=== PATIENT | female | born 1985 | race Caucasian/White ===

== ENCOUNTER 2016-02-28 17:15 | Emergency (ER) | payer MEDICAID ==
[2016-02-28] MEDS ORDERED: guaiFENesin/CODEINE 5 ML UDC PO STA (18:49)
[2016-02-28] MEDS ORDERED: BENZONATATE 100 MG CAPSULE PO STA (18:49)
[2016-02-28] MEDS ORDERED: guaiFENesin/CODEINE 5 ML UDC ONE (19:06)
[2016-02-28] MEDS ORDERED: BENZONATATE 100 MG CAPSULE PO ONE (19:07)
== END 2016-02-28 20:00 | disposition home or self-care (01) ==
DX: J40 Bronchitis, not specified as acute or chronic (principal)
CPT/HCPCS: 71020; 99283; A9270